=== PATIENT | male | born 1955 | race Hispanic/Latino ===

== ENCOUNTER 2018-07-24 11:03 | Outpatient (CLI) | payer OTHER | END 2018-07-24 23:10 | disposition home or self-care (01) | LOC: RAD 11:03 | DX: M79.641 Pain in right hand (principal); R60.9 Edema, unspecified ==

== ENCOUNTER 2019-08-19 13:18 | Emergency (ER) | payer OTHER ==
[~2019-08-19] VITALS: Ht 177.8 cm; Wt 81.6 kg
[2019-08-19 13:18] VITALS: TEMP 98.3
[2019-08-19 15:15] VITALS: BP 144/90
== END 2019-08-19 15:29 | disposition home or self-care (01) ==
LOC: ED 13:18
PROC: 0KQS0ZZ Repair Right Lower Leg Muscle, Open Approach (ICD-10-PCS; principal; 2019-08-19)
PROC: 0KQS0ZZ Repair Right Lower Leg Muscle, Open Approach (ICD-10-PCS; 2019-08-19)
DX: S81.811A Laceration without foreign body, right lower leg, initial encounter (principal); W22.8XXA Striking against or struck by other objects, initial encounter; Y92.89 Other specified places as the place of occurrence of the external cause
CPT/HCPCS: 90471; 90715; 96372; 99283; J0696

== ENCOUNTER 2019-11-10 06:51 | Emergency (ER) | payer OTHER ==
[~2019-11-10] VITALS: Ht 177.8 cm; Wt 99.8 kg
[2019-11-10 06:51] VITALS: TEMP 98.5
[2019-11-10 07:13] LABS: PLATELET COUNT 171 K/uL (142-355)
[2019-11-10 07:45] VITALS: BP 137/83
[2019-11-10 07:50] LABS: POTASSIUM 3.7 mmol/L (3.6-5.2); SODIUM 139 mmol/L (136-145)
[2019-11-10 08:25] LABS: PARTIAL THROMBOPLASTIN TIME 23.3 SECONDS (24.5-33.6)
== END 2019-11-10 08:15 | disposition short-term general hospital (02) ==
LOC: ED 06:51
PROVIDERS: Emergency Medicine Emergency Medical Services
DX: I21.29 ST elevation (STEMI) myocardial infarction involving other sites (principal)
CPT/HCPCS: 80053; 84484; 85027; 85610; 85730; 92977; 93005; 96360; 96365; 96374; 96375; 96376; 99285; J2270; J2405; J3010; J3101

== ENCOUNTER 2020-05-04 15:21 | Outpatient (CLI) | payer OTHER | END 2020-05-04 22:07 | disposition home or self-care (01) | LOC: RAD 15:21 | PROVIDERS: ATTEND Internal Medicine | DX: J40 Bronchitis, not specified as acute or chronic (principal) ==

== ENCOUNTER 2020-11-09 12:05 | Outpatient (CLI) | payer OTHER | END 2020-11-09 19:12 | disposition home or self-care (01) | LOC: LAB 12:05 | PROVIDERS: ATTEND Internal Medicine | DX: Z20.828 Contact with and (suspected) exposure to other viral communicable diseases (principal) | CPT/HCPCS: 87635; G2023; U0003 ==